=== PATIENT | male | born 1960 | race Caucasian/White ===

== ENCOUNTER 2017-06-26 20:22 | Emergency (ER) | payer OTHER ==
[~2017-06-26] VITALS: Ht 195.6 cm; Wt 102.5 kg
[2017-06-26] MEDS ORDERED: ASPI81CH PO (20:41)
[2017-06-26] MEDS ORDERED: CYCL10 PO (21:05)
== END 2017-06-26 21:14 | disposition home or self-care (01) ==
LOC: ER 20:22
DX: T14.90XA Injury, unspecified, initial encounter (principal); M54.6 Pain in thoracic spine; M54.2 Cervicalgia; V49.40XA Driver injured in collision with unspecified motor vehicles in traffic accident, initial encounter; Z79.82 Long term (current) use of aspirin; Z87.891 Personal history of nicotine dependence
CPT/HCPCS: 99283

== ENCOUNTER 2018-04-24 06:40 | Observation (INO) | payer OTHER ==
[~2018-04-24] VITALS: Ht 195.6 cm; Wt 100.1 kg
[~2018-04-24 06:40] MED LIST: ASPI81CH PO; CYCL10 PO
[2018-04-24 07:03] LABS: BASOPHILS ABSOLUTE AUTO 0.03 K/mm3 (0.00-0.23); BASOPHILS PERCENT AUTO 0 % (0-2); EOSINOPHILS ABSOLUTE AUTO 0.03 K/mm3 (0.00-0.68); EOSINOPHILS PERCENT AUTO 0 % (0-6); Hematocrit 48.6 % (37.0-53.0); Hemoglobin 16.1 g/dL (13.5-17.5); IMMATURE GRAN ABSOLUTE AUTO 0.25 K/mm3 (0.00-0.10); IMMATURE GRAN PERCENT AUTO 2 % (0-1); LYMPHOCYTES ABSOLUTE AUTO 1.13 K/mm3 (0.84-5.20); LYMPHOCYTES PERCENT AUTO 7 % (21-46); MONOCYTES ABSOLUTE AUTO 0.46 K/mm3 (0.16-1.47); MONOCYTES PERCENT AUTO 3 % (4-13); Mean Corpuscular HGB 29.9 pg (26.0-34.0); Mean Corpuscular HGB Conc 33.1 g/dL (31.5-36.5); Mean Corpuscular Volume 90 fL (80-100); NEUTROPHILS ABSOLUTE AUTO 14.61 K/mm3 (1.96-9.15); NEUTROPHILS PERCENT AUTO 89 % (41-73); Platelet Count 248 K/mm3 (150-400); RDW Coefficient Variation 12.9 % (11.7-14.2); RDW Standard Deviation 42.2 fL (35.1-46.3); Red Blood Cell Count 5.38 M/mm3 (4.30-5.90); White Blood Cell Count 16.51 K/mm3 (4.00-11.30)
[2018-04-24 07:22] LABS: Alanine Aminotransfer (ALT/SGP 26 U/L (12-78); Albumin, Blood 3.8 g/dL (3.4-5.0); Albumin/Globulin Ratio 1.1 (0.8-1.8); Alk Phos 99 U/L (50-136); Anion Gap 9 mmol/L (6-16); Aspartate Aminotrans (AST/SGOT 21 U/L (12-37); Bilirubin, Total 0.3 mg/dL (0.1-1.0); Blood Urea Nitrogen 17 mg/dL (8-24); CO2, Blood 19 mmol/L (21-32); Calcium, Blood 8.7 mg/dL (8.5-10.1); Chloride, Blood 111 mmol/L (98-108); Creatinine, Blood 1.06 mg/dL (0.60-1.20); Globulin, Blood 3.6 g/dL (2.2-4.0); Glomerular Filtration Rate >60 (60-); Glucose, Blood 146 mg/dL (70-99); Potassium, Blood 4.3 mmol/L (3.5-5.5); Sodium, Blood 139 mmol/L (136-145); Total Protein, Blood 7.4 g/dL (6.4-8.2)
[2018-04-24 09:38] LABS: U Amphetamine Screen Not Detected; U Barbituate Screen Not Detected; U Benzodiazapine Screen Not Detected; U Buprenorphine Screen Not Detected; U Cannabinoids Screen DETECTED; U Cocaine Screen Not Detected; U Methadone Screen Not Detected; U Methamphetamine Screen Not Detected; U Opiates Screen Not Detected; U Oxycodone Screen Not Detected; U Phencyclidine Screen Not Detected; U Propoxyphene Screen Not Detected
--- NOTE | 2018-04-24 16:09 | NUR ---
Patient gave permission for Betty Henderson to provide care on 04/25/18.
--- NOTE | 2018-04-24 18:30 | NUR ---
SHIFT SUMMARY PT WAS NEW ER ADMIT THIS SHIFT, MEDICATED 2X FOR PAIN IN L SHOULDER & BACK. NO CP SINCE ASSUMING CARE. PT IS BEDRESTING AT THIS TIME, WILL CONT TO MONITOR UNTIL REPORT GIVEN TO NOC RN.
[2018-04-24 18:59] LABS: International Normalized Ratio 1.01; Prothrombin Time Results 10.4 Sec (9.7-11.5)
--- NOTE | 2018-04-25 05:15 | NUR ---
PT ADMITTED WITH ALTERED LEVEL OF CONSCIOUNESS. FULL CODE. REGULAR DIET. TELE-NSR AT A RATE OF 90 PER CONVENTION SERVICES MANAGER. NO NEED TO NOTIFY CARDIOLOGY OF ELEVATED TROPONIN VALUES. NPO SINCE 2300 EXCEPT FOR MEDS, NO MEDS ADMINISTERED SINCE THAT TIME SO FAR. HAPARIN DRIP RUNNING. PT IS INDEPENDENT IN ROOM. TAKES MEDICATIONS WHOLE. THE PT PRESENTED TO THE ED FOR A EPISODE FO UNRESPONSIVENESS. THE PTS TRIED TO WAKE HIM UP AND THE PT WAS CONVERRED WITH SWEAT. UPON ARRIVAL TO THE ED THE PT APPEARED PALE AND DIAPHORETIC. TROPONIN WAS INITIALLY NEGATIVE BUT LATER DRAWS CAME BACK ELEVATED. THE PT IS TO HAVE AN ANGIOGRAM TODAY WHICH THE PT WILL BE PICKED UP FOR AT 0700 PER CHARGE NURSE, TO ATTEMPT TO DETERMINE THE UNDERLINING CAUSE OF CHEST PAIN AND INCREASED TROPONIN. THE PT HAS APPEARED TO HAVE SOME NOTED COGNITIVE DEFECITS THROUGHOUT THIS NIGHT. THE PT REPEATS MANY THINGS AND ASKS THE SAME QUESTIONS MULTIPLE TIMES. WHEN THIS NURSE ASKED THE PT IF HE REMEMBERED THAT WE HAD ALREADY DISCUSSED SOMETHING THE PT STATED THAT HE DID BUT CLEARLY DID NOT. PT IS PLEASENT, COOERATIVE, ALERT, ORIENTED WITH INTERMITTENT FORGETFULLNESS, AND INDEPENDENT IN ROOM. APPEARED TO SLEEP COMFORTABLY THROUGHOUT THE NIGHT WITH NO APPARENT SIGNS OF ACUTE DISTRESS. ABLE TO MAKE NEEDS KNOWN AND CALL LIGHT IN REACH.
[2018-04-25 05:27] LABS: BASOPHILS ABSOLUTE AUTO 0.02 K/mm3 (0.00-0.23); BASOPHILS PERCENT AUTO 0 % (0-2); EOSINOPHILS ABSOLUTE AUTO 0.01 K/mm3 (0.00-0.68); EOSINOPHILS PERCENT AUTO 0 % (0-6); Hematocrit 42.7 % (37.0-53.0); Hemoglobin 13.9 g/dL (13.5-17.5); IMMATURE GRAN ABSOLUTE AUTO 0.07 K/mm3 (0.00-0.10); IMMATURE GRAN PERCENT AUTO 0 % (0-1); LYMPHOCYTES ABSOLUTE AUTO 1.51 K/mm3 (0.84-5.20); LYMPHOCYTES PERCENT AUTO 10 % (21-46); MONOCYTES ABSOLUTE AUTO 0.81 K/mm3 (0.16-1.47); MONOCYTES PERCENT AUTO 5 % (4-13); Mean Corpuscular HGB Conc 32.6 g/dL (31.5-36.5); Mean Corpuscular Volume 92 fL (80-100); Mean Platelet Volume 10.6 fL (9.1-12.4); NEUTROPHILS ABSOLUTE AUTO 13.18 K/mm3 (1.96-9.15); NEUTROPHILS PERCENT AUTO 85 % (41-73); Platelet Count 184 K/mm3 (150-400); RDW Coefficient Variation 12.9 % (11.7-14.2); RDW Standard Deviation 43.7 fL (35.1-46.3); Red Blood Cell Count 4.64 M/mm3 (4.30-5.90)
[2018-04-25 05:42] LABS: International Normalized Ratio 1.05; Prothrombin Time Results 10.8 Sec (9.7-11.5)
[2018-04-25 05:54] LABS: Anion Gap 5 mmol/L (6-16); Blood Urea Nitrogen 16 mg/dL (8-24); Bun/Creatinine Ratio 15.8 (12.0-20.0); CHOL/HDL RATIO 4.7; CO2, Blood 25 mmol/L (21-32); Calcium, Blood 8.3 mg/dL (8.5-10.1); Chloride, Blood 111 mmol/L (98-108); Cholesterol 188 mg/dL (50-200); Creatinine, Blood 1.01 mg/dL (0.60-1.20); Glomerular Filtration Rate >60 (60-); Glucose, Blood 110 mg/dL (70-99); HDL Cholesterol 40 mg/dL (>39); LDL/HDL RATIO 3.1; Low Density Lipoprotein Chol 123 mg/dL (0-110); Potassium, Blood 3.9 mmol/L (3.5-5.5); Sodium, Blood 141 mmol/L (136-145); Triglycerides 123 mg/dL (30-160); Very Low Density Lipoprot Chol 24 mg/dL (6-32)
[2018-04-25 05:59] LABS: Troponin I 0.041 ng/mL (0.000-0.040)
--- NOTE | 2018-04-25 08:40 | NUR ---
0800 RETURNED FROM COOK APPRENTICE VSS, R GROIN STABLE W/O HEMATOMA OR BLEEDING, AND 2+ DISTAL PULSES. PT IS SB WITH OCC. PVC NOTED. PT DENIES PAIN OR DISTRESS OF ANY KIND. NS AT 100 STARTED FOR 5 HOURS PER ORDER. R LEG RESTRAINT APPLIED, PT INSTRUCTED RE PROTECTIVE POSITIONING FOR R GROIN BUT IS RESTLESS AND SOMEWHAT NONCOMPLIANT BUT VERY PLEASANT.
--- NOTE | 2018-04-25 09:47 | NUR ---
Morning PO meds given and tolerated well. Right groin insertion site checked. No bleeding or hematoma is present upon palpation. Pedal pulses present with slightly diminished pulse on left foot. NS continues at 100ml / hr. Patient again educated regarding right groin site care.
--- NOTE | 2018-04-25 12:26 | NUR ---
1220 PT SET UP TO SIDE OF BED AND PULLED OUT HIS IV. PT HOLING DIRECT PRESSURE AND ONLY SLIGHT BLEEDING NOTED. PT R GROIN SITE REMAINS STABLE. VS NOTED. ARRANGEMENTS BEING MADE FOR ZIO MONITORING AND PT F/U APPOINTMENT. IN VISITING AND PT SETTING UP EATING W/O ANY SIGNS OF DISTRESS.
[2018-04-25] MEDS ORDERED: ASPI325 PO (13:36)
[2018-04-25] MEDS ORDERED: METO25ER PO (13:37)
[2018-04-25] MEDS ORDERED: Isosorbide Mono30 MG PO (13:38)
[2018-04-25] MEDS ORDERED: ATOR20 PO (13:38)
--- NOTE | 2018-04-25 13:52 | NUR ---
PT INSTRUCTIONS AND D/C PAPER WORK GIVEN AND UNDERSTOOD. PT HAS ZIO MONITOR IN PLACE AND UNDERSTANDS INSTRUCTIONS. IS IN ROOM WITH PT. VS HAVE BEEN STABLE AND R GROIN SITE IS YET STABLE W/O BLEEDING OR HEMATOMA.
== END 2018-04-25 13:52 | disposition home or self-care (01) ==
LOC: ER 06:40 → MEDS 06:41 → ICUE 13:30 → ICUW 04-25 07:00 → ICUE 04-25 07:15
PROVIDERS: Emergency Medicine; Internal Medicine Cardiovascular Disease; Pharmacist; ADMIT Hospitalist
DX: R40.20 Unspecified coma (principal); E87.2 Acidosis; R07.9 Chest pain, unspecified; F12.10 Cannabis abuse, uncomplicated; D72.829 Elevated white blood cell count, unspecified; G89.29 Other chronic pain; R79.89 Other specified abnormal findings of blood chemistry; Z98.890 Other specified postprocedural states; Z79.82 Long term (current) use of aspirin; Z79.899 Other long term (current) drug therapy; Z87.828 Personal history of other (healed) physical injury and trauma; Z87.891 Personal history of nicotine dependence
CPT/HCPCS: 36415; 70450; 71045; 80048; 80053; 80061; 83690; 84443; 84484; 85025; 85610; 85730; 93005; 93010; 93306; 93454; 96360; 96361; 96374; 99152; 99153; 99285-25; C1760; C1769; C1894; G0378; J1644; J2250; J3010; J7030; J7120; Q9967

== ENCOUNTER 2018-05-06 10:45 | Emergency (ER) | payer OTHER ==
[~2018-05-06] VITALS: Ht 195.6 cm; Wt 99.8 kg
[~2018-05-06 10:45] MED LIST changes: +ASPI325 PO; +ATOR20 PO; +Isosorbide Mono30 MG PO; +METO25ER PO
[2018-05-06] MEDS ORDERED: Nitrostat0.4 MG SL (12:53)
== END 2018-05-06 13:05 | disposition home or self-care (01) ==
LOC: ER 10:45
DX: R07.89 Other chest pain (principal); Z79.82 Long term (current) use of aspirin; Z79.899 Other long term (current) drug therapy; Z95.2 Presence of prosthetic heart valve
CPT/HCPCS: 36415; 84484; 93005; 93010; 99285-25

== ENCOUNTER 2019-04-03 14:52 | Day surgery (SDC) | payer OTHER ==
[~2019-04-03 14:52] MED LIST changes: +Nitrostat0.4 MG SL
--- NOTE | 2019-04-03 15:30 | NUR ---
REVIEWED COUMADIN TEACHING. NO REACTION NOTED AFTER 15 MINUTES. LABS DRAWN FOR PROCEDURE SCHEDULED TOMORROW. PT TO START COUMADIN TONIGHT.
[2019-04-03 15:56] LABS: International Normalized Ratio 1.01; Prothrombin Time Results 10.7 Sec (9.7-11.5)
[2019-04-03 16:09] LABS: CHOL/HDL RATIO 4.8; Cholesterol 195 mg/dL (50-200); HDL Cholesterol 41 mg/dL (>39); Low Density Lipoprotein Chol 124 mg/dL (0-110); Triglycerides 152 mg/dL (30-160); Very Low Density Lipoprot Chol 30 mg/dL (6-32)
[2019-04-03] MEDS ORDERED: METO25ER PO (16:25)
[2019-04-03] MEDS ORDERED: ATOR20 PO (16:25)
[2019-04-03] MEDS ORDERED: Isosorbide Mono30 MG PO (16:27)
[2019-04-03] MEDS ORDERED: Nitrostat0.3 MG SL (16:27)
[2019-04-03] MEDS ORDERED: Aspir 8181 MG PO (16:28)
[2019-04-03] MEDS ORDERED: LEVE500 PO (16:28)
[2019-04-03] MEDS ORDERED: Phenytoin Sodi100 MG PO (16:29)
[2019-04-03] MEDS ORDERED: WARF5 PO (16:33)
[2019-04-04] MEDS ORDERED: NITRSPRAY SL (11:40)
[2019-04-04] MEDS ORDERED: Lovenox100 MG/1 M SC (11:42)
[2019-04-04] MEDS ORDERED: WARF5 PO (13:54)
== END 2019-04-03 15:36 | disposition home or self-care (01) ==
LOC: ATC 14:52
PROVIDERS: Internal Medicine Cardiovascular Disease
DX: I48.92 Unspecified atrial flutter (principal); I48.91 Unspecified atrial fibrillation; I25.10 Atherosclerotic heart disease of native coronary artery without angina pectoris; I10 Essential (primary) hypertension; E78.5 Hyperlipidemia, unspecified; G40.909 Epilepsy, unspecified, not intractable, without status epilepticus; G89.29 Other chronic pain; Z79.82 Long term (current) use of aspirin; Z79.899 Other long term (current) drug therapy; Z87.891 Personal history of nicotine dependence
CPT/HCPCS: 80061; 84443; 85610; 96372; J1650

== ENCOUNTER 2019-04-04 11:15 | Day surgery (SDC) | payer OTHER ==
[~2019-04-04] VITALS: Ht 193 cm; Wt 103.0 kg
[~2019-04-04 11:15] MED LIST changes: +Aspir 8181 MG PO; +LEVE500 PO; +Nitrostat0.3 MG SL; +Phenytoin Sodi100 MG PO; +WARF5 PO
[2019-04-04] MEDS ORDERED: NITRSPRAY SL (11:40)
[2019-04-04] MEDS ORDERED: Lovenox100 MG/1 M SC (11:42)
[2019-04-04 11:44] LABS: BASOPHILS ABSOLUTE AUTO 0.05 K/mm3 (0.00-0.23); BASOPHILS PERCENT AUTO 1 % (0-2); EOSINOPHILS ABSOLUTE AUTO 0.14 K/mm3 (0.00-0.68); EOSINOPHILS PERCENT AUTO 2 % (0-6); Hematocrit 43.9 % (37.0-53.0); Hemoglobin 14.4 g/dL (13.5-17.5); IMMATURE GRAN ABSOLUTE AUTO 0.03 K/mm3 (0.00-0.10); IMMATURE GRAN PERCENT AUTO 0 % (0-1); LYMPHOCYTES ABSOLUTE AUTO 2.16 K/mm3 (0.84-5.20); LYMPHOCYTES PERCENT AUTO 24 % (21-46); MONOCYTES ABSOLUTE AUTO 0.56 K/mm3 (0.16-1.47); MONOCYTES PERCENT AUTO 6 % (4-13); Mean Corpuscular HGB 29.6 pg (26.0-34.0); Mean Corpuscular HGB Conc 32.8 g/dL (31.5-36.5); Mean Corpuscular Volume 90 fL (80-100); NEUTROPHILS ABSOLUTE AUTO 6.17 K/mm3 (1.96-9.15); NEUTROPHILS PERCENT AUTO 68 % (41-73); Platelet Count 249 K/mm3 (150-400); RDW Coefficient Variation 12.7 % (11.7-14.2); RDW Standard Deviation 41.3 fL (35.1-46.3); Red Blood Cell Count 4.87 M/mm3 (4.30-5.90); White Blood Cell Count 9.11 K/mm3 (4.00-11.30)
[2019-04-04 12:16] LABS: Alanine Aminotransfer (ALT/SGP 35 U/L (12-78); Albumin, Blood 3.7 g/dL (3.4-5.0); Albumin/Globulin Ratio 1.2 (0.8-1.8); Alk Phos 129 U/L (50-136); Anion Gap 5 mmol/L (6-16); Aspartate Aminotrans (AST/SGOT 22 U/L (12-37); Bilirubin, Total 0.6 mg/dL (0.1-1.0); Blood Urea Nitrogen 19 mg/dL (8-24); Bun/Creatinine Ratio 20.4 (12.0-20.0); CHOL/HDL RATIO 4.4; CO2, Blood 25 mmol/L (21-32); Calcium, Blood 8.7 mg/dL (8.5-10.1); Chloride, Blood 113 mmol/L (98-108); Cholesterol 193 mg/dL (50-200); Creatinine, Blood 0.93 mg/dL (0.60-1.20); Globulin, Blood 3.1 g/dL (2.2-4.0); Glomerular Filtration Rate >60 (60-); Glucose, Blood 89 mg/dL (70-99); HDL Cholesterol 44 mg/dL (>39); LDL/HDL RATIO 2.9; Low Density Lipoprotein Chol 127 mg/dL (0-110); Potassium, Blood 4.3 mmol/L (3.5-5.5); Sodium, Blood 143 mmol/L (136-145); Total Protein, Blood 6.8 g/dL (6.4-8.2); Triglycerides 109 mg/dL (30-160); Very Low Density Lipoprot Chol 21 mg/dL (6-32)
--- NOTE | 2019-04-04 13:03 | NUR ---
PT TOLERATED KWABENA AND SYNCHRONIZED 100J SHOCK WELL. DR BROWN SPEAKING WITH PATIENT. JORDAN RT WAS IN ROOM.
--- NOTE | 2019-04-04 13:19 | NUR ---
FULL REPORT PROVIDED HARJEET FERRER TO ASSUME CARE OF PT.
[2019-04-04] MEDS ORDERED: WARF5 PO (13:54)
--- NOTE | 2019-04-04 14:06 | NUR ---
20 G IV DISCONTINUED FROM RIGHT WRIST WITH INTACT CANNULA. DISCHARGE INSTRUCTIONS REVIEWED AND ALL QUESTIONS ANSWERED. MAKING DEPARTMENT PREPARER OUT VIA WHEELCHAIR ESCORT.
== END 2019-04-04 23:44 | disposition home or self-care (01) ==
LOC: MHTC 11:15
PROVIDERS: Internal Medicine Cardiovascular Disease
DX: I48.92 Unspecified atrial flutter (principal); I48.91 Unspecified atrial fibrillation; I10 Essential (primary) hypertension; I70.0 Atherosclerosis of aorta; I07.1 Rheumatic tricuspid insufficiency; I25.10 Atherosclerotic heart disease of native coronary artery without angina pectoris; E78.5 Hyperlipidemia, unspecified; G89.29 Other chronic pain; Z87.891 Personal history of nicotine dependence; Z79.899 Other long term (current) drug therapy; Z79.82 Long term (current) use of aspirin; R07.89 Other chest pain; G40.909 Epilepsy, unspecified, not intractable, without status epilepticus
CPT/HCPCS: 36415; 80053; 80061; 84443; 85025; 92960; 93005; 93010; 93312; 93325; 96372; 99152; J1650; J2250; J3010; J7030

== ENCOUNTER 2019-04-05 07:06 | Day surgery (SDC) | payer OTHER ==
[~2019-04-05] VITALS: Ht 195.6 cm; Wt 101.0 kg
[~2019-04-05 07:06] MED LIST changes: +Lovenox100 MG/1 M SC; +NITRSPRAY SL
== END 2019-04-05 16:20 | disposition home or self-care (01) ==
LOC: ATC 07:06
DX: I48.91 Unspecified atrial fibrillation (principal); I48.92 Unspecified atrial flutter; I08.1 Rheumatic disorders of both mitral and tricuspid valves; R07.89 Other chest pain; E78.5 Hyperlipidemia, unspecified; I25.10 Atherosclerotic heart disease of native coronary artery without angina pectoris; I10 Essential (primary) hypertension; G89.29 Other chronic pain; G40.909 Epilepsy, unspecified, not intractable, without status epilepticus; Z87.891 Personal history of nicotine dependence; Z79.82 Long term (current) use of aspirin; Z79.01 Long term (current) use of anticoagulants; Z79.899 Other long term (current) drug therapy
CPT/HCPCS: 96372; J1650

== ENCOUNTER 2019-04-06 01:05 | Day surgery (SDC) | payer OTHER ==
--- NOTE | 2019-04-06 07:43 | NUR ---
INR: 1.2
== END 2019-04-06 16:36 | disposition home or self-care (01) ==
LOC: ATC 01:05
DX: I48.91 Unspecified atrial fibrillation (principal); I48.92 Unspecified atrial flutter; R07.89 Other chest pain; I08.1 Rheumatic disorders of both mitral and tricuspid valves; E78.5 Hyperlipidemia, unspecified; I25.10 Atherosclerotic heart disease of native coronary artery without angina pectoris; I10 Essential (primary) hypertension; G89.29 Other chronic pain; G40.909 Epilepsy, unspecified, not intractable, without status epilepticus; Z87.891 Personal history of nicotine dependence; Z79.82 Long term (current) use of aspirin; Z79.01 Long term (current) use of anticoagulants; Z79.899 Other long term (current) drug therapy
CPT/HCPCS: 36416; 85610; 96372; J1650

== ENCOUNTER 2019-04-07 07:11 | Day surgery (SDC) | payer OTHER | END 2019-04-07 16:17 | disposition home or self-care (01) | LOC: ATC 07:11 | DX: I48.91 Unspecified atrial fibrillation (principal); I48.92 Unspecified atrial flutter; R07.89 Other chest pain; I08.1 Rheumatic disorders of both mitral and tricuspid valves; E78.5 Hyperlipidemia, unspecified; I10 Essential (primary) hypertension; G40.909 Epilepsy, unspecified, not intractable, without status epilepticus; G89.29 Other chronic pain; Z79.01 Long term (current) use of anticoagulants; Z79.82 Long term (current) use of aspirin; Z79.899 Other long term (current) drug therapy; Z87.891 Personal history of nicotine dependence | CPT/HCPCS: 36416; 85610; 96372; J1650 ==

== ENCOUNTER 2019-04-08 00:02 | Day surgery (SDC) | payer OTHER | END 2019-04-08 16:15 | disposition home or self-care (01) | LOC: ATC 00:02 | DX: I48.91 Unspecified atrial fibrillation (principal); I48.92 Unspecified atrial flutter; R07.89 Other chest pain; I08.1 Rheumatic disorders of both mitral and tricuspid valves; E78.5 Hyperlipidemia, unspecified; I10 Essential (primary) hypertension; G40.909 Epilepsy, unspecified, not intractable, without status epilepticus; G89.29 Other chronic pain; Z79.01 Long term (current) use of anticoagulants; Z79.82 Long term (current) use of aspirin; Z79.899 Other long term (current) drug therapy; Z87.891 Personal history of nicotine dependence | CPT/HCPCS: 36416; 85610; 96372; J1650 ==

== ENCOUNTER 2019-04-09 01:08 | Day surgery (SDC) | payer OTHER | END 2019-04-09 16:10 | disposition home or self-care (01) | LOC: ATC 01:08 | DX: I48.92 Unspecified atrial flutter (principal); I10 Essential (primary) hypertension; R07.89 Other chest pain; E78.5 Hyperlipidemia, unspecified; G40.909 Epilepsy, unspecified, not intractable, without status epilepticus; I25.10 Atherosclerotic heart disease of native coronary artery without angina pectoris; Z87.891 Personal history of nicotine dependence; Z79.899 Other long term (current) drug therapy; Z79.82 Long term (current) use of aspirin | CPT/HCPCS: 36416; 85610; 96372; J1650 ==

== ENCOUNTER 2019-04-10 07:31 | Day surgery (SDC) | payer OTHER | END 2019-04-10 16:08 | disposition home or self-care (01) | LOC: ATC 07:31 | DX: I48.91 Unspecified atrial fibrillation (principal); I48.92 Unspecified atrial flutter; R07.89 Other chest pain; I08.1 Rheumatic disorders of both mitral and tricuspid valves; I10 Essential (primary) hypertension; I25.10 Atherosclerotic heart disease of native coronary artery without angina pectoris; E78.5 Hyperlipidemia, unspecified; G40.909 Epilepsy, unspecified, not intractable, without status epilepticus; G89.29 Other chronic pain; Z79.01 Long term (current) use of anticoagulants; Z79.82 Long term (current) use of aspirin; Z79.899 Other long term (current) drug therapy; Z87.891 Personal history of nicotine dependence | CPT/HCPCS: 36416; 85610; 96372; J1650 ==

== ENCOUNTER 2019-04-11 02:09 | Day surgery (SDC) | payer OTHER ==
--- NOTE | 2019-04-11 07:59 | NUR ---
FINGERSTICK INR 1.5 MEDICATION GIVEN PER ORDERS. PT TEACHING ON MEDICATIONS/DIET.
== END 2019-04-11 16:09 | disposition home or self-care (01) ==
LOC: ATC 02:09
DX: I48.92 Unspecified atrial flutter (principal); I48.91 Unspecified atrial fibrillation; R07.89 Other chest pain; I25.10 Atherosclerotic heart disease of native coronary artery without angina pectoris; G89.29 Other chronic pain; E78.5 Hyperlipidemia, unspecified; G40.909 Epilepsy, unspecified, not intractable, without status epilepticus; Z87.891 Personal history of nicotine dependence; Z79.899 Other long term (current) drug therapy; Z79.82 Long term (current) use of aspirin
CPT/HCPCS: 36416; 85610; 96372; J1650

== ENCOUNTER 2019-04-12 07:22 | Day surgery (SDC) | payer OTHER ==
--- NOTE | 2019-04-12 07:46 | NUR ---
FINGER STICK INR: TODAY IS 1.3 DOWN FROM YESTERDAY PER PT
== END 2019-04-12 16:20 | disposition home or self-care (01) ==
LOC: ATC 07:22
DX: I48.92 Unspecified atrial flutter (principal); R07.89 Other chest pain; I10 Essential (primary) hypertension; I25.10 Atherosclerotic heart disease of native coronary artery without angina pectoris; E78.5 Hyperlipidemia, unspecified; G40.909 Epilepsy, unspecified, not intractable, without status epilepticus; Z87.891 Personal history of nicotine dependence; Z79.899 Other long term (current) drug therapy; Z79.82 Long term (current) use of aspirin; G89.29 Other chronic pain
CPT/HCPCS: 36416; 85610; 96372; J1650

== ENCOUNTER 2019-04-13 07:17 | Day surgery (SDC) | payer OTHER | END 2019-04-13 17:02 | disposition home or self-care (01) | LOC: ATC 07:17 | DX: I48.92 Unspecified atrial flutter (principal); I48.91 Unspecified atrial fibrillation; R07.89 Other chest pain; I08.1 Rheumatic disorders of both mitral and tricuspid valves; G89.29 Other chronic pain; E78.5 Hyperlipidemia, unspecified; G40.909 Epilepsy, unspecified, not intractable, without status epilepticus; I25.10 Atherosclerotic heart disease of native coronary artery without angina pectoris; I10 Essential (primary) hypertension; Z79.82 Long term (current) use of aspirin; Z87.891 Personal history of nicotine dependence; Z79.01 Long term (current) use of anticoagulants; Z79.899 Other long term (current) drug therapy | CPT/HCPCS: 36416; 85610; 96372; J1650 ==

== ENCOUNTER 2019-04-14 00:02 | Day surgery (SDC) | payer OTHER | END 2019-04-14 16:09 | disposition home or self-care (01) | LOC: ATC 00:02 | DX: I48.92 Unspecified atrial flutter (principal); I48.91 Unspecified atrial fibrillation; R07.89 Other chest pain; I08.1 Rheumatic disorders of both mitral and tricuspid valves; I10 Essential (primary) hypertension; I25.10 Atherosclerotic heart disease of native coronary artery without angina pectoris; E78.5 Hyperlipidemia, unspecified; G40.909 Epilepsy, unspecified, not intractable, without status epilepticus; G89.29 Other chronic pain; Z79.01 Long term (current) use of anticoagulants; Z79.82 Long term (current) use of aspirin; Z79.899 Other long term (current) drug therapy; Z87.891 Personal history of nicotine dependence | CPT/HCPCS: 36416; 85610; 96372; J1650 ==

== ENCOUNTER 2019-04-15 00:54 | Day surgery (SDC) | payer OTHER | END 2019-04-15 16:10 | disposition home or self-care (01) | LOC: ATC 00:54 | DX: I48.92 Unspecified atrial flutter (principal); I48.91 Unspecified atrial fibrillation; R07.89 Other chest pain; I10 Essential (primary) hypertension; I25.10 Atherosclerotic heart disease of native coronary artery without angina pectoris; E78.5 Hyperlipidemia, unspecified; G40.909 Epilepsy, unspecified, not intractable, without status epilepticus; G89.29 Other chronic pain; Z95.2 Presence of prosthetic heart valve; Z79.01 Long term (current) use of anticoagulants; Z79.82 Long term (current) use of aspirin; Z79.899 Other long term (current) drug therapy; Z87.891 Personal history of nicotine dependence | CPT/HCPCS: 36416; 85610; 96372; J1650 ==

== ENCOUNTER 2019-04-16 | Day surgery (SDC) | payer OTHER ==
--- NOTE | 2019-04-16 08:48 | NUR ---
FINGERSTICK INR 1.6 MEDICATION GIVEN PER ORDERS.
== END 2019-04-16 16:10 | disposition home or self-care (01) ==
LOC: ATC
DX: I48.92 Unspecified atrial flutter (principal); I48.91 Unspecified atrial fibrillation; R07.89 Other chest pain; I10 Essential (primary) hypertension; I08.1 Rheumatic disorders of both mitral and tricuspid valves; I25.10 Atherosclerotic heart disease of native coronary artery without angina pectoris; E78.5 Hyperlipidemia, unspecified; G40.909 Epilepsy, unspecified, not intractable, without status epilepticus; G89.29 Other chronic pain; Z87.891 Personal history of nicotine dependence; Z95.2 Presence of prosthetic heart valve; Z79.01 Long term (current) use of anticoagulants; Z79.82 Long term (current) use of aspirin; Z79.899 Other long term (current) drug therapy
CPT/HCPCS: 36416; 85610; 96372; J1650

== ENCOUNTER 2019-04-17 00:09 | Day surgery (SDC) | payer OTHER | END 2019-04-17 16:30 | disposition home or self-care (01) | LOC: ATC 00:09 | DX: I48.92 Unspecified atrial flutter (principal); I48.91 Unspecified atrial fibrillation; R07.89 Other chest pain; I10 Essential (primary) hypertension; I08.1 Rheumatic disorders of both mitral and tricuspid valves; I25.10 Atherosclerotic heart disease of native coronary artery without angina pectoris; E78.5 Hyperlipidemia, unspecified; G40.909 Epilepsy, unspecified, not intractable, without status epilepticus; G89.29 Other chronic pain; Z87.891 Personal history of nicotine dependence; Z95.2 Presence of prosthetic heart valve; Z79.01 Long term (current) use of anticoagulants; Z79.82 Long term (current) use of aspirin; Z79.899 Other long term (current) drug therapy | CPT/HCPCS: 36416; 85610; 96372; J1650 ==

== ENCOUNTER 2019-04-18 00:12 | Day surgery (SDC) | payer OTHER | END 2019-04-18 16:09 | disposition home or self-care (01) | LOC: ATC 00:12 | DX: I48.92 Unspecified atrial flutter (principal); I48.91 Unspecified atrial fibrillation; R07.89 Other chest pain; I08.1 Rheumatic disorders of both mitral and tricuspid valves; I25.10 Atherosclerotic heart disease of native coronary artery without angina pectoris; E78.5 Hyperlipidemia, unspecified; I10 Essential (primary) hypertension; G89.29 Other chronic pain; G40.909 Epilepsy, unspecified, not intractable, without status epilepticus; Z79.01 Long term (current) use of anticoagulants; Z79.82 Long term (current) use of aspirin; Z79.899 Other long term (current) drug therapy; Z87.891 Personal history of nicotine dependence; Z95.2 Presence of prosthetic heart valve | CPT/HCPCS: 36416; 85610; 96372; J1650 ==

== ENCOUNTER 2019-04-19 07:20 | Day surgery (SDC) | payer OTHER | END 2019-04-19 07:47 | disposition home or self-care (01) | LOC: ATC 07:20 | DX: I48.92 Unspecified atrial flutter (principal); I48.91 Unspecified atrial fibrillation; R07.89 Other chest pain; I08.1 Rheumatic disorders of both mitral and tricuspid valves; I25.10 Atherosclerotic heart disease of native coronary artery without angina pectoris; E78.5 Hyperlipidemia, unspecified; I10 Essential (primary) hypertension; G89.29 Other chronic pain; G40.909 Epilepsy, unspecified, not intractable, without status epilepticus; Z79.01 Long term (current) use of anticoagulants; Z79.82 Long term (current) use of aspirin; Z79.899 Other long term (current) drug therapy; Z87.891 Personal history of nicotine dependence; Z95.2 Presence of prosthetic heart valve | CPT/HCPCS: 36416; 85610; 99211 ==

== ENCOUNTER 2019-04-20 06:47 | Day surgery (SDC) | payer OTHER | END 2019-04-20 22:34 | disposition home or self-care (01) | LOC: ATC 06:47 | DX: I48.92 Unspecified atrial flutter (principal); I48.91 Unspecified atrial fibrillation; R07.89 Other chest pain; I08.1 Rheumatic disorders of both mitral and tricuspid valves; I25.10 Atherosclerotic heart disease of native coronary artery without angina pectoris; Z79.01 Long term (current) use of anticoagulants; Z79.899 Other long term (current) drug therapy; Z79.82 Long term (current) use of aspirin; Z95.2 Presence of prosthetic heart valve; Z87.891 Personal history of nicotine dependence ==

== ENCOUNTER 2020-10-16 13:13 | Observation (INO) | payer OTHER ==
[~2020-10-16] VITALS: Ht 195.6 cm; Wt 99.8 kg
[2020-10-16 13:40] LABS: BASOPHILS ABSOLUTE AUTO 0.07 K/mm3 (0.00-0.23); BASOPHILS PERCENT AUTO 1 % (0-2); EOSINOPHILS ABSOLUTE AUTO 0.19 K/mm3 (0.00-0.68); EOSINOPHILS PERCENT AUTO 2 % (0-6); Hematocrit 48.9 % (37.0-53.0); Hemoglobin 16.3 g/dL (13.5-17.5); IMMATURE GRAN ABSOLUTE AUTO 0.05 K/mm3 (0.00-0.10); IMMATURE GRAN PERCENT AUTO 0 % (0-1); LYMPHOCYTES ABSOLUTE AUTO 1.75 K/mm3 (0.84-5.20); LYMPHOCYTES PERCENT AUTO 15 % (21-46); MONOCYTES ABSOLUTE AUTO 0.81 K/mm3 (0.16-1.47); MONOCYTES PERCENT AUTO 7 % (4-13); Mean Corpuscular HGB 29.7 pg (26.0-34.0); Mean Corpuscular HGB Conc 33.3 g/dL (31.5-36.5); Mean Corpuscular Volume 89 fL (80-100); NEUTROPHILS ABSOLUTE AUTO 8.65 K/mm3 (1.96-9.15); NEUTROPHILS PERCENT AUTO 75 % (41-73); Platelet Count 240 K/mm3 (150-400); RDW Coefficient Variation 12.6 % (11.7-14.2); RDW Standard Deviation 41.2 fL (35.1-46.3); Red Blood Cell Count 5.48 M/mm3 (4.30-5.90); White Blood Cell Count 11.52 K/mm3 (4.00-11.30)
[2020-10-16] MEDS ORDERED: ELIQUIS5 M2 PO (13:51)
[2020-10-16] MEDS ORDERED: LAMO100 PO (13:53)
[2020-10-16 14:02] LABS: Alanine Aminotransfer (ALT/SGP 18 U/L (12-78); Albumin, Blood 4.3 g/dL (3.4-5.0); Albumin/Globulin Ratio 1.2 (0.8-1.8); Alk Phos 108 U/L (50-136); Anion Gap 7 mmol/L (6-16); Aspartate Aminotrans (AST/SGOT 17 U/L (12-37); Bilirubin, Total 0.6 mg/dL (0.1-1.0); Blood Urea Nitrogen 18 mg/dL (8-24); Bun/Creatinine Ratio 13.7 (12.0-20.0); CO2, Blood 21 mmol/L (21-32); Calcium, Blood 9.5 mg/dL (8.5-10.1); Chloride, Blood 113 mmol/L (98-108); Creatinine, Blood 1.31 mg/dL (0.60-1.20); Globulin, Blood 3.6 g/dL (2.2-4.0); Glomerular Filtration Rate 59 (60-); Glucose, Blood 104 mg/dL (70-99); Potassium, Blood 4.3 mmol/L (3.5-5.5); Sodium, Blood 141 mmol/L (136-145); Total Protein, Blood 7.9 g/dL (6.4-8.2); Troponin I <0.015 ng/mL (0.000-0.040)
--- NOTE | 2020-10-16 16:37 | NUR ---
PT ADMIT TO PCU. ABLE TO STAND AND WALK TO BED. ABLE TO MOVE AROUND IN BED WITHOUT ASSISTANCE. ON ROOM AIR SATING ABOVE 94%. LUNGS SOUNDING CLEAR AND DIM IN BASES. COMPLAINS OF DRY HACKY COUGH. TELE SHOWING AFIB WITH HR 110'S. ON CARDIZEM DRIP AT 5MG/HR. DENIES CHEST PAIN/PRESSURE. BP STABLE. BOWEL TONES HEARD. SCARING TO CHEST AND ABDOMEN. TRENDING TROPS. NEURO WNL. AT BEDSIDE AND ABLE TO HELP WITH HISTORY QUESTIONS. MED REC COMPLETED. PATIENT DRINKING WATER AND EATING SNACK. NO NEEDS AT THIS TIME. CALL LIGHT IN REACH. ORIENTED TO UNIT AND ROOM. WILL CONTINUE TO MONITOR.
[2020-10-16] MEDS ORDERED: ERGO400 PO (17:02)
--- NOTE | 2020-10-16 17:43 | NUR ---
SHIFT SUMMARY: NO ACUTE CHANGES. SEE PREVIOUS NOTE. PT REMAINS ON CARDIZEM AT 5MG/HR. HR AVERAGING 90-100'S. WILL CONTINUE TO MONITOR. DENIES NEEDS AT THIS TIME. DENIES PAIN. VITAL SIGNS STABLE. EATING DINNER AT THIS TIME. CALL LIGHT IN REACH. WILL CONTINUE TO MONITOR DRIP AND REPORT OFF.
--- NOTE | 2020-10-16 19:32 | NUR ---
CARDIZEM GTT TURNED OFF; HEART RATE LOW 80'S FOR 30 MINUTES
--- NOTE | 2020-10-16 20:03 | NUR ---
CALLED DR. EATON TO REQUEST PATIENT'S LAMICTAL BE ADDED TO [facility]
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
--- NOTE | 2020-10-16 20:55 | NUR ---
CALLED DR. EATON DUE TO PATIENT'S KEPPRA DOSE BEING INCORRECT; WAS 500MG BID AND PATIENT TAKES 750MG BID AT HOME; ORDERS RECIEVED
[2020-10-17 00:21] LABS: BASOPHILS ABSOLUTE AUTO 0.03 K/mm3 (0.00-0.23); BASOPHILS PERCENT AUTO 0 % (0-2); EOSINOPHILS ABSOLUTE AUTO 0.23 K/mm3 (0.00-0.68); EOSINOPHILS PERCENT AUTO 3 % (0-6); IMMATURE GRAN ABSOLUTE AUTO 0.02 K/mm3 (0.00-0.10); IMMATURE GRAN PERCENT AUTO 0 % (0-1); LYMPHOCYTES ABSOLUTE AUTO 2.16 K/mm3 (0.84-5.20); LYMPHOCYTES PERCENT AUTO 24 % (21-46); MONOCYTES ABSOLUTE AUTO 0.69 K/mm3 (0.16-1.47); MONOCYTES PERCENT AUTO 8 % (4-13); Mean Corpuscular HGB 29.7 pg (26.0-34.0); Mean Corpuscular HGB Conc 33.3 g/dL (31.5-36.5); Mean Corpuscular Volume 89 fL (80-100); Mean Platelet Volume 10.1 fL (9.1-12.4); NEUTROPHILS ABSOLUTE AUTO 6.02 K/mm3 (1.96-9.15); NEUTROPHILS PERCENT AUTO 66 % (41-73); Platelet Count 174 K/mm3 (150-400); RDW Coefficient Variation 12.7 % (11.7-14.2); RDW Standard Deviation 41.8 fL (35.1-46.3); Red Blood Cell Count 4.71 M/mm3 (4.30-5.90); White Blood Cell Count 9.15 K/mm3 (4.00-11.30)
[2020-10-17 01:01] LABS: Bun/Creatinine Ratio 14.6 (12.0-20.0); Calcium, Blood 8.7 mg/dL (8.5-10.1); Creatinine, Blood 1.37 mg/dL (0.60-1.20); Thyroid Stimulating Hormone 3.78 uIU/mL (0.360-4.800)
--- NOTE | 2020-10-17 06:30 | NUR ---
PATIENT SLEPT ABOUT EIGHT HOURS; SBA TO BATHROOM; HEART RATE UP TO 110'S WHEN AMBULATING; 90-100'S MOST OF NIGHT. VSS. NO ACUTE CHANGES TO REPORT.
--- NOTE | 2020-10-17 07:55 | NUR ---
PT ALERT AND ORIENTED X4. ON ROOM AIR SATING ABOVE 94%. DENIES SOB AT THIS TIME. TELE SHOWING AFIB WITH HR AVERAGING 90-100. CARDIZEM DRIP REMAINS OFF. VITAL SIGNS STABLE. DENIES CHEST PAIN/PRESSURE. LUNGS SOUNDING CLEAR. BOWEL TONES HEARD. NEURO WNL. PT STATES HE IS FEELING GREAT. SBA FOR SAFETY. CALL LIGHT IN REACH. DENIES NEEDS AT THIS TIME. WILL CONTINUE TO MONITOR.
--- NOTE | 2020-10-17 17:27 | NUR ---
DISCHARGE: NO ACUTE CHANGES. DR. DU IN TO SEE PATIENT AND NEW ORDERS FOR MEDICATION. TELE SHOWING AFIB WITH HR 110'S. DENIES PAINS. ON ROOM AIR. VITAL SIGNS STABLE. DISCHARGE INSTRUCTIONS REVIEWED AND QUESTIONS ANSWERED. IV TAKEN OUT PER PROTOCOL. PATIENT LEFT UNIT WITH ALL PERSONAL BELONGINGS AND DISCHARGE PAPERWORK.
== END 2020-10-17 16:11 | disposition home or self-care (01) ==
LOC: ER 13:13 → PCU 13:14
PROVIDERS: Emergency Medicine; ADMIT Internal Medicine
DX: I48.20 Chronic atrial fibrillation, unspecified (principal); I51.3 Intracardiac thrombosis, not elsewhere classified; G40.909 Epilepsy, unspecified, not intractable, without status epilepticus; N18.30 Chronic kidney disease, stage 3 unspecified; Z79.01 Long term (current) use of anticoagulants; Z87.891 Personal history of nicotine dependence
CPT/HCPCS: 36415; 71045; 80048; 80053; 83880; 84443; 84484; 85025; 93005; 93010; 96365; 96376; 99285-25; A9270; G0378

== ENCOUNTER 2021-01-05 10:03 | Emergency (ER) | payer OTHER ==
[~2021-01-05] VITALS: Ht 195.6 cm; Wt 98.4 kg
[~2021-01-05 10:03] MED LIST changes: +ELIQUIS5 M2 PO; +ERGO400 PO; +LAMO100 PO
[2021-01-05 10:34] LABS: BASOPHILS ABSOLUTE AUTO 0.06 K/mm3 (0.00-0.23); BASOPHILS PERCENT AUTO 1 % (0-2); EOSINOPHILS ABSOLUTE AUTO 0.16 K/mm3 (0.00-0.68); EOSINOPHILS PERCENT AUTO 2 % (0-6); Hematocrit 52.3 % (37.0-53.0); IMMATURE GRAN ABSOLUTE AUTO 0.03 K/mm3 (0.00-0.10); IMMATURE GRAN PERCENT AUTO 0 % (0-1); LYMPHOCYTES ABSOLUTE AUTO 1.73 K/mm3 (0.84-5.20); LYMPHOCYTES PERCENT AUTO 19 % (21-46); MONOCYTES PERCENT AUTO 10 % (4-13); Mean Corpuscular HGB 29.1 pg (26.0-34.0); Mean Corpuscular HGB Conc 32.5 g/dL (31.5-36.5); Mean Corpuscular Volume 90 fL (80-100); Mean Platelet Volume 10.1 fL (9.1-12.4); NEUTROPHILS ABSOLUTE AUTO 6.23 K/mm3 (1.96-9.15); NEUTROPHILS PERCENT AUTO 68 % (41-73); Platelet Count 231 K/mm3 (150-400); RDW Coefficient Variation 13.4 % (11.7-14.2); RDW Standard Deviation 43.8 fL (35.1-46.3); Red Blood Cell Count 5.84 M/mm3 (4.30-5.90); White Blood Cell Count 9.11 K/mm3 (4.00-11.30)
[2021-01-05] MEDS ORDERED: LAMICTAL200 MG PO (10:40)
[2021-01-05 10:55] LABS: Albumin, Blood 4.6 g/dL (3.4-5.0); Albumin/Globulin Ratio 1.3 (0.8-1.8); Calcium, Blood 9.8 mg/dL (8.5-10.1); Creatinine, Blood 1.33 mg/dL (0.60-1.20); Globulin, Blood 3.5 g/dL (2.2-4.0); Potassium, Blood 4.4 mmol/L (3.5-5.5); Total Protein, Blood 8.1 g/dL (6.4-8.2)
[2021-01-05 10:58] LABS: International Normalized Ratio 1.09; Prothrombin Time Results 11.7 Sec (9.7-11.5)
[2021-01-05 11:39] LABS: SARS-Cov-2 (COVID-19) PCR, MMC NEGATIVE (NEGATIVE)
[2021-01-05] MEDS ORDERED: DILT120 PO (14:51)
[2021-01-05] MEDS ORDERED: DABI150C PO (14:52)
--- NOTE | 2021-01-05 15:00 | NUR ---
DISCHARGE PT REMAINED A&OX3 AND DENIED ANY PAIN DURING RECOVERY. PT ABLE TO DRINK WATER. PT ABLE TO DRESS SELF AN AMBULATE INDEPENDATLY WITH STEADY GAIT. IV DC'D WITH CANYLA IN TACT. DISCHARGE PAPEWORK GONE OVER WITH PT. PT VERBALLY STATED THE UDERSTANDING OF THE DISCHARGE EDUCATION AND DENIED ANY QUESTIONS AT THIS TIME. PT WHEELED OUT BY THIS NURSE.
== END 2021-01-05 13:01 | disposition home or self-care (01) ==
LOC: ER 10:03
PROVIDERS: Emergency Medicine
DX: I48.91 Unspecified atrial fibrillation (principal); Z20.822 Contact with and (suspected) exposure to COVID-19; Z79.899 Other long term (current) drug therapy; Z87.891 Personal history of nicotine dependence
CPT/HCPCS: 36415; 80053; 83735; 85025; 85610; 93005; 93010; 93312; 93325; 99152; 99285-25; A9270; J2250; J2310; J3010; J7030; U0004

== ENCOUNTER 2021-03-16 12:22 | Day surgery (SDC) | payer OTHER ==
[~2021-03-16] VITALS: Ht 195.6 cm; Wt 100.0 kg
[~2021-03-16 12:22] MED LIST changes: +DABI150C PO; +DILT120 PO; +LAMICTAL200 MG PO
--- NOTE | 2021-03-16 14:29 | NUR ---
PT RESTING COMFORTABLY. VSS. NADN. TOLERATED KWABENA WELL. UNABLE TO PERFORM CARDIOVERSION TODAY. WILL RETURN IN A FEW MONTHS FOR REPEAT PROCEDURE.
--- NOTE | 2021-03-16 14:54 | NUR ---
PT VERBALIZES UNDERSTANDING WRITTEN AND VERBAL INSTRUCTIONS. VSS. [place]. PT DC TO HOME VIA S/O BY HEENA.
== END 2021-03-16 23:08 | disposition home or self-care (01) ==
LOC: MHTC 12:22
DX: I48.19 Other persistent atrial fibrillation (principal); I51.3 Intracardiac thrombosis, not elsewhere classified; I25.10 Atherosclerotic heart disease of native coronary artery without angina pectoris; E78.5 Hyperlipidemia, unspecified; Z79.899 Other long term (current) drug therapy
CPT/HCPCS: 93325; A9270; C8925; J2704; J7030; Q9957

== ENCOUNTER 2023-08-06 11:37 | Emergency (ER) | payer OTHER ==
[~2023-08-06] VITALS: Ht 198.1 cm; Wt 94.3 kg
[2023-08-06 11:51] VITALS: BP 123/92
== END 2023-08-06 14:48 | disposition home or self-care (01) ==
LOC: ER 11:37
DX: S01.81XA Laceration without foreign body of other part of head, initial encounter (principal); W01.0XXA Fall on same level from slipping, tripping and stumbling without subsequent striking against object, initial encounter; I48.91 Unspecified atrial fibrillation; Y92.009 Unspecified place in unspecified non-institutional (private) residence as the place of occurrence of the external cause; Z79.899 Other long term (current) drug therapy; Z79.01 Long term (current) use of anticoagulants; Z87.891 Personal history of nicotine dependence
CPT/HCPCS: 12013; 70450; 99283-25

== ENCOUNTER 2024-01-02 01:23 | Day surgery (SDC) | payer OTHER ==
[~2024-01-02 01:23] MED LIST changes: +AMIODARONE HCL200 M1 PO; +Crestor 20 mg tablet PO; +Crestor40 MG PO; +DIGOX125 MC1 PO; +DIVA125 PO; +ENOX100I SC; +Ertapenem Sodium 1,000 MG in NS 50 ML IV SCH; +Keppra PO; +METO50ER PO; +TACR1 TOP; +TRIA15CR3 TOP
[2024-01-02 08:20] VITALS: BP 119/91
[2024-01-02] MEDS ORDERED: ERTAPENEM1 G6 IV (08:46)
== END 2024-01-02 08:48 | disposition home or self-care (01) ==
LOC: ATC 01:23
DX: N39.0 Urinary tract infection, site not specified (principal); B96.5 Pseudomonas (aeruginosa) (mallei) (pseudomallei) as the cause of diseases classified elsewhere; I48.0 Paroxysmal atrial fibrillation; I10 Essential (primary) hypertension; Z87.891 Personal history of nicotine dependence; Z79.899 Other long term (current) drug therapy
CPT/HCPCS: 96365; J1335

== ENCOUNTER 2024-01-03 01:35 | Day surgery (SDC) | payer OTHER ==
[~2024-01-03 01:35] MED LIST changes: +ERTAPENEM1 G6 IV
[2024-01-03 08:43] VITALS: BP 109/75
== END 2024-01-03 08:59 | disposition home or self-care (01) ==
LOC: ATC 01:35
DX: N39.0 Urinary tract infection, site not specified (principal); B96.5 Pseudomonas (aeruginosa) (mallei) (pseudomallei) as the cause of diseases classified elsewhere; L40.0 Psoriasis vulgaris; I48.0 Paroxysmal atrial fibrillation; I10 Essential (primary) hypertension; Z87.891 Personal history of nicotine dependence; Z79.899 Other long term (current) drug therapy
CPT/HCPCS: 96365; J1335

== ENCOUNTER 2024-01-05 01:54 | Day surgery (SDC) | payer OTHER ==
[2024-01-05 08:22] VITALS: BP 118/82
== END 2024-01-05 09:04 | disposition home or self-care (01) ==
LOC: ATC 01:54
DX: N39.0 Urinary tract infection, site not specified (principal); B96.5 Pseudomonas (aeruginosa) (mallei) (pseudomallei) as the cause of diseases classified elsewhere; I48.0 Paroxysmal atrial fibrillation; I10 Essential (primary) hypertension; I25.2 Old myocardial infarction; E78.00 Pure hypercholesterolemia, unspecified; G40.909 Epilepsy, unspecified, not intractable, without status epilepticus; Z79.01 Long term (current) use of anticoagulants; Z86.16 Personal history of COVID-19; Z95.2 Presence of prosthetic heart valve; Z87.891 Personal history of nicotine dependence; Z79.899 Other long term (current) drug therapy
CPT/HCPCS: 96365; J1335

== ENCOUNTER 2024-01-06 08:17 | Day surgery (SDC) | payer OTHER ==
[2024-01-06 08:27] VITALS: BP 99/74
[2024-01-06 08:50] VITALS: BP 95/65
== END 2024-01-06 08:55 | disposition home or self-care (01) ==
LOC: ATC 08:17
DX: N39.0 Urinary tract infection, site not specified (principal); B96.5 Pseudomonas (aeruginosa) (mallei) (pseudomallei) as the cause of diseases classified elsewhere; I10 Essential (primary) hypertension; I48.0 Paroxysmal atrial fibrillation; G40.909 Epilepsy, unspecified, not intractable, without status epilepticus; I25.2 Old myocardial infarction; Z95.2 Presence of prosthetic heart valve; Z87.891 Personal history of nicotine dependence; Z86.16 Personal history of COVID-19; Z79.899 Other long term (current) drug therapy
CPT/HCPCS: 96365; J1335

== ENCOUNTER 2024-01-07 04:12 | Day surgery (SDC) | payer OTHER ==
[2024-01-07 08:20] VITALS: BP 119/85
== END 2024-01-07 08:48 | disposition home or self-care (01) ==
LOC: ATC 04:12
DX: N39.0 Urinary tract infection, site not specified (principal); B96.5 Pseudomonas (aeruginosa) (mallei) (pseudomallei) as the cause of diseases classified elsewhere; I48.0 Paroxysmal atrial fibrillation; G40.909 Epilepsy, unspecified, not intractable, without status epilepticus; I10 Essential (primary) hypertension; I25.2 Old myocardial infarction; Z87.891 Personal history of nicotine dependence; Z79.899 Other long term (current) drug therapy
CPT/HCPCS: 96365; J1335

== ENCOUNTER 2024-01-08 03:00 | Day surgery (SDC) | payer OTHER ==
[2024-01-08 08:20] VITALS: BP 100/78
== END 2024-01-08 08:45 | disposition home or self-care (01) ==
LOC: ATC 03:00
DX: R56.9 Unspecified convulsions (principal); I48.0 Paroxysmal atrial fibrillation; E78.00 Pure hypercholesterolemia, unspecified; I10 Essential (primary) hypertension; I25.2 Old myocardial infarction; Z87.891 Personal history of nicotine dependence; Z79.899 Other long term (current) drug therapy; B96.5 Pseudomonas (aeruginosa) (mallei) (pseudomallei) as the cause of diseases classified elsewhere
CPT/HCPCS: 96365; J1335